=== PATIENT | female | born 1930 | race Caucasian/White ===

== ENCOUNTER 2017-04-23 10:21 | Outpatient (CLI) | payer MEDICARE ==
[~2017-04-23 10:21] MED LIST: AMLO2.5T2 PO; APIX5TAB3 PO
[2017-04-23 11:20] LABS: BASOPHILS % (AUTO) 0.5 % (0-1); EOSINOPHILS # (AUTO) 0.1 X10'3 (0-0.9); HEMATOCRIT 42.6 % (35.0-45.0); HEMOGLOBIN 14.4 g/dl (12.0-16.0); LYMPHOCYTES # (AUTO) 1.2 X10'3 (1.1-4.8); LYMPHOCYTES % (AUTO) 17.6 % (21-51); MEAN CORPUSCULAR HEMOGLOBIN 29.7 PG (27.0-31.0); MEAN CORPUSCULAR HGB CONC 33.8 % (33.0-36.5); MEAN CORPUSCULAR VOLUME 87.9 FL (78-98); MEAN PLATELET VOLUME 7.3 FL (7.4-10.4); MONOCYTES # (AUTO) 0.5 X10'3 (0-0.9); MONOCYTES % (AUTO) 6.9 % (2-12); NEUTROPHILS # (AUTO) 5.2 X10'3 (1.8-7.7); PLATELET COUNT 281 X10'3 (140-440); RED BLOOD COUNT 4.85 X10'6 (4.20-5.60); RED CELL DISTRIBUTION WIDTH 13.9 % (11.5-14.5)
[2017-04-23 11:24] LABS: CLARITY,URINE SLIGHTLY CLOUDY (Clear); COLOR,URINE YELLOW (Yellow); GLUCOSE, URINE NEGATIVE (Neg); KETONES,URINE NEGATIVE (Neg); LEUKOCYTE ESTERASE ,URINE NEGATIVE (Neg); NITRITES, URINE NEGATIVE (Neg); OCCULT BLOOD,URINE NEGATIVE (Neg); PH,URINE 5.5 (4.8-8.0); PROTEIN,URINE 30 mg/dl (Neg); UROBILINOGEN,URINE 0.2 E.U/dL (0.2-1.0)
[2017-04-23 11:27] LABS: UA COLLECTION TYPE CLN CATCH MIDSTREAM
[2017-04-23 11:28] LABS: PROTHROMBIN TIME 10.4 SECONDS (9.0-12.0)
[2017-04-23 11:30] LABS: MUCUS STRANDS FEW /LPF (Neg); SQUAMOUS EPITHELIAL CELL,UR FEW /LPF (FEW)
[2017-04-23 11:31] LABS: BACTERIA,URINE FEW /HPF (Neg); HYALINE CASTS 0-3 /LPF (NEGATIVE); RBC,URINE 0-2 /HPF (0-2); WBC,URINE 0-4 /HPF (0-4)
[2017-04-23 11:49] LABS: ALANINE AMINOTRANSFERASE 21 U/L (12-78); ALBUMIN/GLOBULIN RATIO 0.9 (1.1-1.5); ALKALINE PHOSPHATASE 80 IU/L (46-116); ANION GAP 8 (8-16); ASPARTATE AMINO TRANSFERASE 20 U/L (10-37); BILIRUBIN,TOTAL 0.7 MG/DL (0.1-1.0); BLOOD UREA NITROGEN 25 MG/DL (7-18); BUN/CREATININE RATIO 17.2 (6.6-38.0); CALCIUM 9.5 MG/DL (8.5-10.1); CHLORIDE 106 MMOL/L (99-107); CREATININE 1.45 MG/DL (0.40-0.90); GLUCOSE 132 MG/DL (70-104); POTASSIUM 4.1 MMOL/L (3.5-5.1); SODIUM 142 MMOL/L (135-145); TOTAL CARBON DIOXIDE 27.8 MMOL/L (24-32); TOTAL PROTEIN 8.4 G/DL (6.4-8.2); eGFR 34 ML/MIN
[2017-04-24 10:09] LABS: HEMOGLOBIN A1C 5.9 % (4.5-6.2)
== END 2017-04-23 23:59 | disposition home or self-care (01) ==
LOC: LAB 10:21
PROVIDERS: ATTEND Specialist
DX: Z01.818 Encounter for other preprocedural examination (principal); Z51.81 Encounter for therapeutic drug level monitoring; N39.0 Urinary tract infection, site not specified; I10 Essential (primary) hypertension
CPT/HCPCS: 36415; 80053; 81001; 83036; 85025; 85610; 87070

== ENCOUNTER 2017-05-07 05:21 | Inpatient (IN) | payer MEDICARE, OTHER ==
[2017-05-07] VITALS (18 sets, daily range): BP systolic 102–183; BP diastolic 45–89
[~2017-05-07] VITALS: Ht 172.7 cm; Wt 84.5 kg
[~2017-05-07 05:21] MED LIST changes: +ringers solution, lacted 1,000 ML IV SCH
[2017-05-07] MEDS ORDERED: famotidine 20mg tablet PO ONE (05:30)
[2017-05-07] MEDS ORDERED: tranexamic acid inj. 1,000 MG in normal saline 100ml IV soln 90 ML IV ONE (05:30)
[2017-05-07] MEDS ORDERED: gabapentin 300mg capsule PO ONE (05:30)
[2017-05-07] MEDS ORDERED: acetaminophen 325mg tablet PO ONE (05:30)
[2017-05-07] MEDS ORDERED: LIDOcaine 1% (10mg/ml) 2ml vial ONE (05:54)
[2017-05-07] MEDS ORDERED: ceFAZolin 2gm in dextrose, iso 100 ML IV ONE (06:00)
[2017-05-07 06:33] LABS: PROTHROMBIN TIME 10.1 SECONDS (9.0-12.0)
[2017-05-07] MEDS ORDERED: ROPIVAcaine 0.5% (5mg/ml) 30ml vial ONE ×2 (06:48→07:18)
[2017-05-07] MEDS ORDERED: bacitracin inj 150,000 UNIT in sodium chloride irrig. sol 3,000 ML IR ONE (07:00)
[2017-05-07] MEDS ORDERED: cloNIDine hcl/PF 100mcg/ml inj ONE (07:18)
[2017-05-07] MEDS ORDERED: tetracaine 1% (10mg/ml) pres. free inj. ONE (07:18)
[2017-05-07] MEDS ORDERED: MIDAZolam 1mg/ml 10ml vial ONE (07:22)
[2017-05-07] MEDS ORDERED: fentaNYL/PF 50MCG/1 ML 2ML syringe ONE (07:22)
[2017-05-07] MEDS ORDERED: propofol inj 20 ML IV ONE (08:02)
[2017-05-07] MEDS ORDERED: ringers solution, lacted 1,000 ML IV SCH (08:27)
[2017-05-07] MEDS ORDERED: ondansetron/PF 4mg/2ml inj IV PRN ×2 (08:30→09:55)
[2017-05-07] MEDS ORDERED: proCHLORperazine 10 MG/2 ml inj IV PRN (08:30)
[2017-05-07] MEDS ORDERED: meperidine/PF 25mg/ml syringe IV PRN ×3 (08:30)
[2017-05-07] MEDS ORDERED: ePHEDrine 50MG/ML INJ. ONE (09:42)
[2017-05-07] MEDS ORDERED: diphenhydrAMINE 25mg capsule PO PRN ×2 (09:55)
[2017-05-07] MEDS ORDERED: acetaminophen 325mg tablet PO PRN (09:55)
[2017-05-07] MEDS ORDERED: magnesium hydroxide 30ml (MOM) UD suspension PO PRN (09:55)
[2017-05-07] MEDS ORDERED: HYDROmorphone 1 mg/ml syringe IV PRN (09:55)
[2017-05-07] MEDS ORDERED: bisacodyl 10mg suppository rectal RC PRN (09:55)
[2017-05-07] MEDS: acetaminophen 325mg tablet PO SCH ×2 (14:00→20:24)
[2017-05-07] MEDS: potassium cl 20mEq in 1/2 NS 1,000 ML IV SCH ×2 (14:26→22:18)
[2017-05-07] MEDS ORDERED: triamcinolone acetonide 40mg/ml inj IM ONE (16:40)
[2017-05-07] MEDS: cefazolin 1gm/NS 100mL 100 ML IV SCH ×2 (16:46→23:54)
[2017-05-07] MEDS: ascorbic acid 500mg tablet PO SCH (20:24)
[2017-05-07] MEDS: amLODIPine 5mg tablet PO SCH (20:24)
[2017-05-07] MEDS: sennosides 8.6mg tablet PO SCH (20:25)
[2017-05-08] MEDS: acetaminophen 325mg tablet PO SCH ×4 (02:00→21:00)
[2017-05-08] MEDS: oxyCODONE IR 5mg (immed. release) tablet PO PRN (05:46)
[2017-05-08] MEDS: potassium cl 20mEq in 1/2 NS 1,000 ML IV SCH (05:46)
[2017-05-08 06:44] LABS: BASOPHILS % (AUTO) 0 % (0-1); EOSINOPHILS # (AUTO) 0.1 X10'3 (0-0.9); EOSINOPHILS % (AUTO) 0.6 % (0-6); HEMATOCRIT 34.9 % (35.0-45.0); HEMOGLOBIN 11.8 g/dl (12.0-16.0); LYMPHOCYTES # (AUTO) 0.2 X10'3 (1.1-4.8); LYMPHOCYTES % (AUTO) 0.9 % (21-51); MEAN CORPUSCULAR HEMOGLOBIN 30.1 PG (27.0-31.0); MEAN CORPUSCULAR HGB CONC 33.9 % (33.0-36.5); MEAN CORPUSCULAR VOLUME 89.1 FL (78-98); MEAN PLATELET VOLUME 8.3 FL (7.4-10.4); MONOCYTES # (AUTO) 0.4 X10'3 (0-0.9); MONOCYTES % (AUTO) 2.1 % (2-12); NEUTROPHILS # (AUTO) 17.9 X10'3 (1.8-7.7); NEUTROPHILS % (AUTO) 96.4 % (42-75); PLATELET COUNT 164 X10'3 (140-440); RED BLOOD COUNT 3.92 X10'6 (4.20-5.60); RED CELL DISTRIBUTION WIDTH 14.4 % (11.5-14.5); WHITE BLOOD COUNT 18.6 X10'3 (4.5-11.0)
[2017-05-08 07:03] LABS: INR 1.8 INR; PROTHROMBIN TIME 18.1 SECONDS (9.0-12.0)
[2017-05-08 07:04] VITALS: BP 117/65
[2017-05-08 07:06] LABS: NEUTROPHILS % (MANUAL) 62 % (42-75); TOTAL CELLS COUNTED 100
[2017-05-08 07:07] LABS: BANDS% (MANUAL) 35 % (0-10); LYMPHOCYTES % (MANUAL) 2 % (21-51); MONOCYTES % (MANUAL) 1 % (2-12); PLATELET ESTIMATE NORMAL
[2017-05-08 07:08] LABS: ANION GAP 7 (8-16); CHLORIDE 107 MMOL/L (99-107); POTASSIUM 5.8 MMOL/L (3.5-5.1); SODIUM 136 MMOL/L (135-145); TOTAL CARBON DIOXIDE 21.9 MMOL/L (24-32)
[2017-05-08] MEDS: multivitamins, therapeutics tablet PO SCH (07:39)
[2017-05-08] MEDS: ascorbic acid 500mg tablet PO SCH ×2 (07:39→21:01)
[2017-05-08] MEDS: sodium chloride 0.45% 1,000 ML IV SCH ×2 (08:11→16:48)
[2017-05-08] MEDS ORDERED: warfarin 1mg tablet PO ONE (10:00)
[2017-05-08 12:57] VITALS: BP 113/52
[2017-05-08 15:00] VITALS: BP 104/58
[2017-05-08 18:00] VITALS: BP 105/80
[2017-05-08] MEDS: Protein Shake (high protein) 240ml (8oz) cup PO SCH (18:00)
[2017-05-08] MEDS: sennosides 8.6mg tablet PO SCH (21:00)
[2017-05-08] MEDS: amLODIPine 5mg tablet PO SCH (21:00)
[2017-05-08 21:01] VITALS: BP 129/66
[2017-05-08 22:00] VITALS: BP 131/70
[2017-05-09] MEDS: sodium chloride 0.45% 1,000 ML IV SCH ×3 (01:14→20:05)
[2017-05-09] MEDS: acetaminophen 325mg tablet PO SCH ×2 (02:00→07:45)
[2017-05-09 05:00] VITALS: BP 156/113
[2017-05-09] MEDS: oxyCODONE IR 5mg (immed. release) tablet PO PRN (05:28)
[2017-05-09 06:30] VITALS: BP 137/71
[2017-05-09 06:37] LABS: BASOPHILS % (AUTO) 0.1 % (0-1); EOSINOPHILS # (AUTO) 0.4 X10'3 (0-0.9); EOSINOPHILS % (AUTO) 2.6 % (0-6); HEMATOCRIT 33.6 % (35.0-45.0); HEMOGLOBIN 11.4 g/dl (12.0-16.0); LYMPHOCYTES # (AUTO) 0.4 X10'3 (1.1-4.8); LYMPHOCYTES % (AUTO) 3.1 % (21-51); MEAN CORPUSCULAR HEMOGLOBIN 30.2 PG (27.0-31.0); MEAN CORPUSCULAR HGB CONC 33.8 % (33.0-36.5); MEAN CORPUSCULAR VOLUME 89.3 FL (78-98); MEAN PLATELET VOLUME 7.9 FL (7.4-10.4); MONOCYTES # (AUTO) 0.2 X10'3 (0-0.9); MONOCYTES % (AUTO) 1.5 % (2-12); NEUTROPHILS # (AUTO) 13.2 X10'3 (1.8-7.7); NEUTROPHILS % (AUTO) 92.7 % (42-75); PLATELET COUNT 170 X10'3 (140-440); RED BLOOD COUNT 3.76 X10'6 (4.20-5.60); RED CELL DISTRIBUTION WIDTH 14.5 % (11.5-14.5); WHITE BLOOD COUNT 14.2 X10'3 (4.5-11.0)
[2017-05-09 06:44] LABS: INR 1.4 INR; PROTHROMBIN TIME 14.3 SECONDS (9.0-12.0)
[2017-05-09] MEDS: ascorbic acid 500mg tablet PO SCH ×2 (07:45→20:04)
[2017-05-09] MEDS: multivitamins, therapeutics tablet PO SCH (07:45)
[2017-05-09 08:49] LABS: ALBUMIN 2.7 G/DL (3.4-5.0); ANION GAP 6 (8-16); BLOOD UREA NITROGEN 39 MG/DL (7-18); BUN/CREATININE RATIO 19.1 (6.6-38.0); CALCIUM 8.6 MG/DL (8.5-10.1); CHLORIDE 104 MMOL/L (99-107); CREATININE 2.04 MG/DL (0.40-0.90); GLUCOSE 133 MG/DL (70-104); POTASSIUM 4.5 MMOL/L (3.5-5.1); SODIUM 135 MMOL/L (135-145); TOTAL CARBON DIOXIDE 24.7 MMOL/L (24-32); eGFR 23 ML/MIN
[2017-05-09] MEDS: Protein Shake (high protein) 240ml (8oz) cup PO SCH ×3 (08:49→18:00)
[2017-05-09] MEDS ORDERED: acetaminophen 325mg tablet PO PRN (09:55)
[2017-05-09 10:00] VITALS: BP 147/70
[2017-05-09] MEDS ORDERED: warfarin 5mg tablet PO ONE (10:00)
[2017-05-09 14:00] VITALS: BP 138/70
[2017-05-09 18:00] VITALS: BP 153/76
[2017-05-09] MEDS: amLODIPine 5mg tablet PO SCH (20:05)
[2017-05-09] MEDS: sennosides 8.6mg tablet PO SCH (20:05)
[2017-05-09 22:00] VITALS: BP 149/77
[2017-05-10] MEDS: sodium chloride 0.45% 1,000 ML IV SCH ×2 (04:21→08:10)
[2017-05-10] MEDS: oxyCODONE IR 5mg (immed. release) tablet PO PRN (05:00)
[2017-05-10 06:00] VITALS: BP 161/85
[2017-05-10 06:41] LABS: INR 1.4 INR; PROTHROMBIN TIME 14.1 SECONDS (9.0-12.0)
[2017-05-10 06:50] LABS: BASOPHILS % (AUTO) 0.1 % (0-1); EOSINOPHILS # (AUTO) 0.4 X10'3 (0-0.9); EOSINOPHILS % (AUTO) 4.1 % (0-6); HEMATOCRIT 30.3 % (35.0-45.0); HEMOGLOBIN 10.3 g/dl (12.0-16.0); LYMPHOCYTES # (AUTO) 0.4 X10'3 (1.1-4.8); LYMPHOCYTES % (AUTO) 4.1 % (21-51); MEAN CORPUSCULAR HEMOGLOBIN 30.2 PG (27.0-31.0); MEAN CORPUSCULAR HGB CONC 33.8 % (33.0-36.5); MEAN CORPUSCULAR VOLUME 89.3 FL (78-98); MEAN PLATELET VOLUME 8.3 FL (7.4-10.4); MONOCYTES # (AUTO) 0.3 X10'3 (0-0.9); MONOCYTES % (AUTO) 3.4 % (2-12); NEUTROPHILS % (AUTO) 88.3 % (42-75); PLATELET COUNT 153 X10'3 (140-440); RED CELL DISTRIBUTION WIDTH 14.7 % (11.5-14.5); WHITE BLOOD COUNT 10.2 X10'3 (4.5-11.0)
[2017-05-10] MEDS: ipratropium/albuterol 3ml nebule NEB PRN ×3 (07:26→12:56)
[2017-05-10] MEDS: ascorbic acid 500mg tablet PO SCH ×2 (08:28→20:28)
[2017-05-10] MEDS: Protein Shake (high protein) 240ml (8oz) cup PO SCH ×3 (08:28→18:37)
[2017-05-10] MEDS: multivitamins, therapeutics tablet PO SCH (08:29)
[2017-05-10 10:00] VITALS: BP 151/78
[2017-05-10] MEDS ORDERED: warfarin 5mg tablet PO ONE (10:00)
[2017-05-10] MEDS ORDERED: furosemide 40mg/4ml inj IV ONE (13:10)
[2017-05-10 18:00] VITALS: BP 160/67
[2017-05-10] MEDS: amLODIPine 5mg tablet PO SCH (20:27)
[2017-05-10] MEDS: sennosides 8.6mg tablet PO SCH (20:28)
[2017-05-10 22:00] VITALS: BP 153/88
[2017-05-11 05:00] VITALS: BP 164/87
[2017-05-11 06:24] LABS: BASOPHILS % (AUTO) 0.1 % (0-1); EOSINOPHILS # (AUTO) 0.3 X10'3 (0-0.9); EOSINOPHILS % (AUTO) 3.5 % (0-6); HEMATOCRIT 29.7 % (35.0-45.0); HEMOGLOBIN 10.1 g/dl (12.0-16.0); LYMPHOCYTES # (AUTO) 0.5 X10'3 (1.1-4.8); LYMPHOCYTES % (AUTO) 5.7 % (21-51); MEAN CORPUSCULAR HGB CONC 34.1 % (33.0-36.5); MEAN CORPUSCULAR VOLUME 87.9 FL (78-98); MEAN PLATELET VOLUME 7.7 FL (7.4-10.4); MONOCYTES # (AUTO) 0.5 X10'3 (0-0.9); MONOCYTES % (AUTO) 6.5 % (2-12); NEUTROPHILS % (AUTO) 84.2 % (42-75); PLATELET COUNT 174 X10'3 (140-440); RED BLOOD COUNT 3.38 X10'6 (4.20-5.60); RED CELL DISTRIBUTION WIDTH 14.2 % (11.5-14.5); WHITE BLOOD COUNT 8.3 X10'3 (4.5-11.0)
[2017-05-11 06:44] LABS: ALANINE AMINOTRANSFERASE 26 U/L (12-78); ALBUMIN 2.5 G/DL (3.4-5.0); ALBUMIN/GLOBULIN RATIO 0.6 (1.1-1.5); ALKALINE PHOSPHATASE 58 IU/L (46-116); ANION GAP 9 (8-16); ASPARTATE AMINO TRANSFERASE 17 U/L (10-37); BILIRUBIN,TOTAL 0.6 MG/DL (0.1-1.0); BLOOD UREA NITROGEN 27 MG/DL (7-18); BUN/CREATININE RATIO 15.6 (6.6-38.0); CALCIUM 8.7 MG/DL (8.5-10.1); CHLORIDE 103 MMOL/L (99-107); CREATININE 1.73 MG/DL (0.40-0.90); GLUCOSE 143 MG/DL (70-104); POTASSIUM 3.6 MMOL/L (3.5-5.1); SODIUM 140 MMOL/L (135-145); TOTAL CARBON DIOXIDE 28.1 MMOL/L (24-32); TOTAL PROTEIN 6.8 G/DL (6.4-8.2); eGFR 28 ML/MIN
[2017-05-11] MEDS: Protein Shake (high protein) 240ml (8oz) cup PO SCH ×3 (08:00→18:00)
[2017-05-11 08:04] LABS: INR 1.5 INR
[2017-05-11] MEDS: ipratropium/albuterol 3ml nebule NEB PRN ×2 (09:00→19:28)
[2017-05-11] MEDS: multivitamins, therapeutics tablet PO SCH (09:08)
[2017-05-11] MEDS: ascorbic acid 500mg tablet PO SCH ×2 (09:09→20:18)
[2017-05-11 10:00] VITALS: BP 153/71
[2017-05-11] MEDS ORDERED: warfarin 5mg tablet PO ONE (10:00)
[2017-05-11 10:10] LABS: ABG BASE EXCESS 0.7 mmol/L (-2.0-3.0); ABG HCO3 23.9 mmol/L (22.0-26.0); ABG OXYGEN SATURATION 92.8 % (95-98); ABG PCO2 (T) 33.3 mmHg (32.0-45.0); ABG PH (T) 7.474 (7.350-7.450); ALLEN'S TEST Positive; FCOHb 0.3 % (0.5-1.5); FLOW 4 L/min; FMetHb 0.1 % (0.3-1.12); FO2Hb 92.4 % (94-100); TOTAL HEMOGLOBIN 11.3 G/dl (12.0-16.0)
[2017-05-11 11:15] LABS: BASOPHILS % (AUTO) 0.1 % (0-1); EOSINOPHILS # (AUTO) 0.2 X10'3 (0-0.9); EOSINOPHILS % (AUTO) 1.8 % (0-6); HEMATOCRIT 31.4 % (35.0-45.0); HEMOGLOBIN 10.5 g/dl (12.0-16.0); LYMPHOCYTES # (AUTO) 0.5 X10'3 (1.1-4.8); LYMPHOCYTES % (AUTO) 5.9 % (21-51); MEAN CORPUSCULAR HEMOGLOBIN 29.8 PG (27.0-31.0); MEAN CORPUSCULAR HGB CONC 33.5 % (33.0-36.5); MEAN PLATELET VOLUME 7.7 FL (7.4-10.4); MONOCYTES # (AUTO) 0.6 X10'3 (0-0.9); MONOCYTES % (AUTO) 7.1 % (2-12); NEUTROPHILS # (AUTO) 7.7 X10'3 (1.8-7.7); NEUTROPHILS % (AUTO) 85.1 % (42-75); PLATELET COUNT 192 X10'3 (140-440); RED BLOOD COUNT 3.53 X10'6 (4.20-5.60); RED CELL DISTRIBUTION WIDTH 14.4 % (11.5-14.5); WHITE BLOOD COUNT 9.1 X10'3 (4.5-11.0)
[2017-05-11 11:30] LABS: ALANINE AMINOTRANSFERASE 32 U/L (12-78); ALBUMIN 2.6 G/DL (3.4-5.0); ALBUMIN/GLOBULIN RATIO 0.6 (1.1-1.5); ALKALINE PHOSPHATASE 67 IU/L (46-116); ANION GAP 9 (8-16); ASPARTATE AMINO TRANSFERASE 25 U/L (10-37); BILIRUBIN,TOTAL 0.6 MG/DL (0.1-1.0); BLOOD UREA NITROGEN 27 MG/DL (7-18); BUN/CREATININE RATIO 16.9 (6.6-38.0); CHLORIDE 101 MMOL/L (99-107); GLUCOSE 183 MG/DL (70-104); POTASSIUM 3.4 MMOL/L (3.5-5.1); SODIUM 137 MMOL/L (135-145); eGFR 30 ML/MIN
[2017-05-11 15:37] VITALS: BP 143/68
[2017-05-11] MEDS ORDERED: polyethylene glycol 3350 17gm powd pack PO ONE (16:55)
[2017-05-11] MEDS ORDERED: magnesium 4gm in 100ml NS 100 ML IV PRN (20:00)
[2017-05-11] MEDS ORDERED: magnesium 2GM in 50ml NS 50 ML IV PRN (20:00)
[2017-05-11] MEDS ORDERED: potassium Cl 20 mEq SR tablet PO PRN ×2 (20:00)
[2017-05-11] MEDS ORDERED: potassium Cl 40MEQ/NS 500ml 500 ML IV PRN ×2 (20:00)
[2017-05-11] MEDS ORDERED: magnesium Cl slow-release 64mg tablet PO PRN (20:00)
[2017-05-11] MEDS: sennosides 8.6mg tablet PO SCH (20:18)
[2017-05-11] MEDS: amLODIPine 5mg tablet PO SCH (20:18)
[2017-05-11 22:00] VITALS: BP 156/82
[2017-05-12 06:00] VITALS: BP 137/77
[2017-05-12 06:19] LABS: MAGNESIUM 1.9 MG/DL (1.5-2.4); POTASSIUM 4.1 MMOL/L (3.5-5.1)
[2017-05-12 06:25] LABS: PROTHROMBIN TIME 19.9 SECONDS (9.0-12.0)
[2017-05-12] MEDS: ascorbic acid 500mg tablet PO SCH ×2 (07:51→20:08)
[2017-05-12] MEDS: multivitamins, therapeutics tablet PO SCH (07:51)
[2017-05-12] MEDS: Protein Shake (high protein) 240ml (8oz) cup PO SCH ×3 (08:25→18:00)
[2017-05-12] MEDS ORDERED: warfarin 4mg tablet PO ONE (10:00)
[2017-05-12 11:03] VITALS: BP 149/83
[2017-05-12 18:10] VITALS: BP 154/74
[2017-05-12] MEDS: amLODIPine 5mg tablet PO SCH (20:08)
[2017-05-12] MEDS: sennosides 8.6mg tablet PO SCH (20:09)
[2017-05-12] MEDS: ipratropium/albuterol 3ml nebule NEB PRN (21:53)
[2017-05-12 23:16] VITALS: BP 154/76
[2017-05-13 06:00] VITALS: BP 144/70
[2017-05-13 06:12] LABS: INR 2.2 INR
[2017-05-13 06:29] LABS: MAGNESIUM 1.8 MG/DL (1.5-2.4); POTASSIUM 3.8 MMOL/L (3.5-5.1)
[2017-05-13] MEDS: ipratropium/albuterol 3ml nebule NEB PRN (07:25)
[2017-05-13] MEDS: multivitamins, therapeutics tablet PO SCH (07:31)
[2017-05-13] MEDS: ascorbic acid 500mg tablet PO SCH ×2 (07:31→20:49)
[2017-05-13] MEDS: Protein Shake (high protein) 240ml (8oz) cup PO SCH ×3 (08:23→18:00)
[2017-05-13 10:00] VITALS: BP 133/90
[2017-05-13] MEDS ORDERED: warfarin 3mg tablet PO ONE (10:00)
[2017-05-13 18:00] VITALS: BP 160/64
[2017-05-13] MEDS: amLODIPine 5mg tablet PO SCH (20:49)
[2017-05-13] MEDS: sennosides 8.6mg tablet PO SCH (20:49)
[2017-05-13 22:00] VITALS: BP 162/74
[2017-05-14 01:22] LABS: CLARITY,URINE Clear (Clear); COLOR,URINE Yellow (Yellow); GLUCOSE, URINE Negative (Neg); KETONES,URINE Negative (Neg); LEUKOCYTE ESTERASE ,URINE Negative (Neg); NITRITES, URINE Negative (Neg); OCCULT BLOOD,URINE Negative (Neg); PROTEIN,URINE Trace mg/dl (Neg); UROBILINOGEN,URINE 0.2 E.U/dL (0.2-1.0)
[2017-05-14 01:25] LABS: UA COLLECTION TYPE NON-SPECIFIED
[2017-05-14 01:32] LABS: BACTERIA,URINE NONE SEEN /HPF (Neg); RBC,URINE NONE SEEN /HPF (0-2); SQUAMOUS EPITHELIAL CELL,UR FEW /LPF (FEW); WBC,URINE NONE SEEN /HPF (0-4)
[2017-05-14 06:23] LABS: INR 2.1 INR; PROTHROMBIN TIME 20.7 SECONDS (9.0-12.0)
[2017-05-14 06:24] LABS: MAGNESIUM 1.8 MG/DL (1.5-2.4); POTASSIUM 4.1 MMOL/L (3.5-5.1)
[2017-05-14 06:53] VITALS: BP 152/92
[2017-05-14] MEDS: ascorbic acid 500mg tablet PO SCH (07:52)
[2017-05-14] MEDS: multivitamins, therapeutics tablet PO SCH (07:52)
[2017-05-14] MEDS: Protein Shake (high protein) 240ml (8oz) cup PO SCH (08:42)
[2017-05-14] MEDS ORDERED: warfarin 3mg tablet PO ONE (10:00)
== END 2017-05-14 10:03 | disposition home or self-care (01) | DRG 470 ==
LOC: PAS IN 05:21 → EDSTATUS 07:30 → ORTHO 4S 11:00
PROVIDERS: ADMIT Specialist; ATTEND Specialist
PROC: 0MNP0ZZ Release Left Knee Bursa and Ligament, Open Approach (ICD-10-PCS; 2017-05-07)
PROC: 3E0T3BZ Introduction of Anesthetic Agent into Peripheral Nerves and Plexi, Percutaneous Approach (ICD-10-PCS; 2017-05-07)
PROC: 0SRD0J9 Replacement of Left Knee Joint with Synthetic Substitute, Cemented, Open Approach (ICD-10-PCS; principal; 2017-05-07 07:16)
PROC: CB121ZZ Planar Nuclear Medicine Imaging of Lungs and Bronchi using Technetium 99m (Tc-99m) (ICD-10-PCS; 2017-05-11)
DX: M17.0 Bilateral primary osteoarthritis of knee (principal); D62 Acute posthemorrhagic anemia; K56.7 Ileus, unspecified; I48.2 Chronic atrial fibrillation; D72.829 Elevated white blood cell count, unspecified; I10 Essential (primary) hypertension; M21.162 Varus deformity, not elsewhere classified, left knee; M21.161 Varus deformity, not elsewhere classified, right knee; M25.762 Osteophyte, left knee; R06.02 Shortness of breath; R21 Rash and other nonspecific skin eruption; R09.02 Hypoxemia; Z77.22 Contact with and (suspected) exposure to environmental tobacco smoke (acute) (chronic); Z96.641 Presence of right artificial hip joint; Z90.710 Acquired absence of both cervix and uterus; Z99.3 Dependence on wheelchair; Z88.0 Allergy status to penicillin; Z88.8 Allergy status to other drugs, medicaments and biological substances; Z91.040 Latex allergy status; Z79.899 Other long term (current) drug therapy; Z79.01 Long term (current) use of anticoagulants; Z79.82 Long term (current) use of aspirin; Z90.49 Acquired absence of other specified parts of digestive tract
CPT/HCPCS: 36415; 36600; 71045; 73560; 74021; 78582; 80048; 80051; 80053; 81001; 82803; 83735; 84132; 85018; 85025; 85610; 87502; 87503; 93005; 94640; 94667; 94760; 97110; 97116; 97161; 97530; A4315; A6449; A6455; A7000; A9539; A9540; C1713; C1758; C1776; J0690; J0735; J1170; J1940; J2250; J2405; J2704; J2795; J3010; J3301; J3480; J3490; J7030; J7120; Q0163

== ENCOUNTER 2017-05-30 15:30 | Outpatient (CLI) | payer MEDICARE ==
[~2017-05-30 15:30] MED LIST changes: -ringers solution, lacted 1,000 ML IV SCH
== END 2017-05-30 23:59 | disposition home or self-care (01) ==
LOC: VAS 15:30
PROVIDERS: ATTEND Specialist
DX: Z01.810 Encounter for preprocedural cardiovascular examination (principal); I10 Essential (primary) hypertension; R60.0 Localized edema; Z96.641 Presence of right artificial hip joint; Z98.890 Other specified postprocedural states
CPT/HCPCS: 93970